=== PATIENT | female | born 1990 | race Two or more races ===

== ENCOUNTER 2024-11-10 08:51 | Outpatient (AMB) | payer MEDICAID, SELFPAY ==
[2024-11-10 09:12] VITALS: BP 125/80; PULSE 90; RESP 18; TEMP 36.4; O2SAT 97; BMI 34.8
--- NOTE | 2024-11-10 09:12 | OBCLNT_ITS ---
Vital Signs 11/10/24 09:12 Height 1.65 m Height Method Stated Weight 95.028 kg Weight Measurement Method Standing Scale BMI 34.8 BP 125/80 Blood Pressure Source Automatic Cuff Blood Pressure Location Left Upper Arm Position Sitting Respiration 18 Pulse 90 Pulse Source Monitor Temp 97.5 F Temp Source Oral Pulse Oximetry (%) 97 Oxygen Delivery Method Room Air Allergies/Home Meds Allergies & Medications Allergies No Known Allergies Allergy (Verified 11/10/24 09:13) Medication Reconciliation No Known Home Medications 09/02/22 [History Confirmed 11/10/24] Intake Visit Data Collection New Patient or Established: Established Patient (seen at [facility] within 3 years) Reason for Visit:: CARE TRANSFER Seen by Clinical Staff ONLY (RN/MA): No Deputy Felony Clerk Required: No Do You Feel Safe at Home: Yes Authorities Contacted: N/A PCP or OBGYN visit in last 3 months: Yes Hx Now: Yes Are you currently on any form of Control: No Last menstrual period: 03/13/24 Pain Present Currently: No Pain Scale Used: Mitchell-Wise/Numerical Pain scale:: 0 Smoking Status Smoking Status: Never smoker Questionnaires Covid-19 Vaccine Questionnaire Has patient been vacinated for Covid-19 Have you been vacinated for Covid-19: Yes PHQ-9 PHQ-2 Over the last 2 weeks, how often have you been bothered by any of the following problems? 1. Little interest or pleasure in doing things: not at all 2. Feeling down, depressed, or hopeless: not at all Total score: 0 PHQ-9 3. Trouble falling or staying asleep, or sleeping too much: Not at all 4. Feeling tired or having little energy: Not at all 5. Poor appetite or overeating: Not at all 6. Feeling bad about yourself - or that you are a failure or have let yourself or your family down: Not at all 7. Trouble concentrating on things, such as reading the newspaper or watching television: Not at all 8. Moving or speaking so slowly that other people could have noticed? - Or the opposite - being so fidgety or restless that you have been moving around a lot more than usual: not at all 9. Thoughts that you would be better off or of hurting yourself in some way: Not at all Total score: 0 Source: Developed by Drs. Lizandro Ramos, Madina Kee, Saeed Lyn and colleagues, with an educational anselmo from [employer]. Depression screen completed yes Social History Living Situation History Marital Status: Lives With: Family Housing: House Tobacco History Smoking Status: Never smoker Second Hand Smoke Exposure: No Alcohol History Alcohol Intake: Never Substance Use History Substance Use: THC Domestic Abuse History Do You Feel Safe at Home: Yes Past Medical History Past Medical History Have you ever been diagnosed with any of the following: Neurological Problems Cerebrovascular Accident (CVA): No Transient Ischemic Attacks (TIA): No Dementia: No Alzheimer's Disease: No Parkinson's Disease: No Brain Tumor: No Meningitis: No Seizures: No Epilepsy: No Multiple Sclerosis: No Cerebral Palsy: No Amyotrophic Lateral Sclerosis (ALS/Mellissa Gehrig's): No Guillain-Spicer Syndrome: No Spina Bifida: No Cardiology Problems Myocardial Infarction: No Cardiac Arrhythmia: No Atrial Fibrillation: No Angina: No Heart Murmur: No Coronary Artery Disease: No Congestive Heart Failure: No Hypertension: Yes Respiratory Problems Chronic Obstructive Pulmonary Disease (COPD): No Asthma: No Bronchitis: No Emphysema: No Pneumonia: No Pulmonary Fibrosis: No Tuberculosis: No Pulmonary Embolism: No Hx Cough: No Cough: No Wheezing: No Chest Deformities: No Smoking: No Smoking Cessation Counseling: No Smoking Exposure: No Tobacco Use: No Clubbing: No Stomache/Intestinal Problems Liver Cancer: No Hepatitis: No Celiac Disease: No Gall Bladder Disease: No Gastrointestinal Bleed: No Genital/Urinary Problems Chronic Kidney Disease: No Renal Disease: No Kidney Stones: No Reproductive Problems Breast Cancer: No Endometriosis: No Genital Herpes: No Gonorrhea: No Pelvic Inflammatory Disease: No Previous Pregnancies: Yes Syphilis: No Uterine Prolapse: No Musculoskeletal Problems Muscular Dystrophy: No Myasthenia Gravis: No Marfan's Syndrome: No Bone Cancer: No Arthritis: No Head,Eye,Nose,Throat Problems Cataracts: No Glaucoma: No Blind: No Retinal Detachment: No Endocrine Problems Diabetes Mellitus Type 1: No Diabetes Mellitus Type 2: No Blood Problems Anemia: No Leukemia: No Hemophilia: No Thalassemia: No Psychologic Problems Schizophrenia: No Recreational Drug Use: Yes (THC) Depression: No Anxiety: No Behavior Problems: No Self-Mutilation: No Attention Deficit Disorder: No Attention Deficit Hyperactivity Disorder: No Depression: No Post Traumatic Stress Disorder: No Eating Disorder: No Other Problems Hospitalization: No Down Syndrome: No Autism: No Developmental Delay: No Shingles: No Falls: No Blood Transfusions: No Blood Transfusion Reaction: No Anesthesia Reactions: No Organ Transplant: No Chemotherapy: No Radiation Therapy: No Hyperbaric Therapy: No MRSA: No VRSA: No Vancomycin-Resistant Enterococci: No Human Immunodeficiency Virus (HIV): No Chicken Pox: Yes Measles: No Mumps: No Rubella (North Korean Measles): No Pertussis: No Clostridium Difficile: No Cancer: No Surgical History Angioplasty: No Appendectomy: No Bariatric Surgery: No Sinus Surgery: No Splenectomy: No History of Present Illness HPI Narrative This is a 34-year-old 7 para 6 that comes for her first visit to see [facility]. Patient is a transfer from [facility] with records. Her first visit at [facility] was at 13 weeks. Last period is March 13, 2025. This gives due date December 19, 2024. Patient reports good movement. Denies signs of labor. And denies OB complaints at this time. Patient's has been uneventful. She has a history of a 10 pound baby uncomplicated . Patient is B+, antibody screen negative, RPR nonreactive, rubella immune, hepatitis B negative, hep C negative, HIV negative, GC and Chlamydia were negative. Third trimester labs were normal. She had urine drug screen positive for THC. Denies surgeries. And denies any chronic medical illnesses. OB Initial Visit OB Flowsheet OB Flowsheet Initial Weight: Not Recorded Date -?-?-?-?-?-?-?-?-?-?-?-?- EGA Weight Edema CTX Effacement BP Fundal ht Pres Dilation Effacement Station Visit Note Alb Glu FHR Mov 11/10/24 -?-?-?-?-?-?-?-?-?-?-?-?- 34w 2d 95.028 kg absent absent 125/80 34 cephalic This is a 35-year-old grand multipara here for her first visit [facility] OB clinic. Patient is a 7 para 6. Last period March 13, 2025. This gives due date December 19, 2024. Patient's biggest baby weighed 10 pounds. No history of shoulder dystocia and no problems with the . She comes with records from [facility] today. She had 2 anatomy scans that showed normal anatomy. And she also had genetic referral because of a history of. Gastric pieces in the paternal grandfather. Reports activity. Denies signs and symptoms of labor. Patient desires tubal ligation. Schedule anatomy scan at [facility] for growth. And schedule with OB next visit for BTL consult. Return in a week for GBS 156 active Menstrual History Menstrual reliability: definite Flow: heavy Menstrual regularity: regular Monthly: Yes Age at menarche: 10 On control pills at conception: No Associated symptoms (LMP): Denies amenorrhea, nausea, vomiting, fatigue, breast tenderness, urinary frequency, irritability, bloating or other OB History : 7 Para: 6 Hx # Pregnancies: 0 Hx Total # of Abortions (Spontaneous & Elective): 0 # of Living Children: 6 Delivery History 1st : Child's name: DESHAUN date: 09/23/09 sex: female Delivery type: vaginal Delivery complications: NONE History of depression before or after : No 2nd : Child's name: ATUL date: 09/24/10 sex: male Delivery type: vaginal Delivery complications: NONE History of depression before or after : No 3rd : Child's name: MADHAV date: 11/10/11 sex: female Delivery type: vaginal Delivery complications: NONE History of depression before or after : No 4th : Child's name: ASHLEY date: 07/13/14 sex: male Delivery type: vaginal Delivery complications: NONE History of depression before or after : No 5th : Child's name: SERINA date: 04/26/16 sex: male Delivery type: vaginal Delivery complications: none, 9-14 History of depression before or after : No 6th : Child's name: KENDY date: 11/22/21 sex: male Delivery type: vaginal weight (lbs): 4535.924 g Delivery complications: NONE, 10lb, 6oz History of depression before or after : No Infection History & Risk Evaluation History of STDs: none Genetic Screening & History Genetic Screening/Teratology Counseling - Includes patient, baby's father, or anyone in either family with: 1. Patient's age 35 years or older as of estimated date of delivery: No 2. Thalassemia ([place], Chinese, Mediterranean, or Background); MCV less than 80: No 3. Neural Tube Defect (Meningomyelocele, Spina Bifida, or Anencephaly): No 4. Congenital Heart Defect: No 5. Down Syndrome: No 6. Terry-Sachs (Ashkenazi Jain, Cajun, Cam[place]onian [place]): No 7. Robert Disease (Ashkenazi Jain): No 8. Familial Dysautonomia (Ashkenazi Jain): No 9. Sickle Cell Disease or Trait (): No 10. Hemophilia or other blood disorders: No 11. Muscular Dystrophy: No 12. Cystic Fibrosis: No 13. Elliott's Chorea: No 14. Mental Retardation/Autism: No 15. Other inherited genetic or chromosomal disorder: No 16. Maternal Metabolic Disorder (EG,TYPE 1 Diabetes, PKU): No 17. Patient or baby's father had a child with defects not listed above: No 18. Recurrent loss or a stillbirth: No 19. Medications (including supplements, vitamins, herbs or otc drugs)/illicit/recreational drugs/alcohol since last menstrual period: No 20. Any other: No Infection History 1. Live with someone with TB or exposed to TB: No 2. Rash or viral illness since last menstrual period: No 3. Hepatitis B,C: No Other (see comments) Source: [employer] Review of Systems Review of Systems Systems Reviewed: All systems reviewed, normal except as documented Constitutional Constitutional: Denies fatigue Gastrointestinal Gastrointestinal: Denies bloating, Denies nausea and Denies vomiting Genitourinary Genitourinary: Denies amenorrhea and Denies urinary frequency Psychiatric Psychiatric: Denies irritability Endocrine Endocrine: Denies fatigue Exam General Limitations: no limitations General Appearance: alert, in no apparent distress, comfortable, cooperative, healthy appearing, well developed and well groomed Head Head exam: atraumatic, normocephalic and normal inspection Chest Chest inspection: Present normal inspection and symmetric chest wall rise Resp Respiratory exam: Present normal lung sounds bilaterally Card Cardiovascular exam: Present regular rate, normal rhythm and normal heart sounds Abdominal Abdominal exam: Present soft ([id number]) and normal bowel sounds Psych Psychiatric exam: Present normal affect and normal mood Assessment & Plan Diagnosis / Problem List (1) [facility]: Status: Acute (2) Grand multiparity with current : Status: Acute Qualifiers: Trimester: third trimester Qualified Code(s): O09.43 - Supervision of with grand multiparity, third trimester Plan schedule with OB [place] for BTL consult, reviewed labor signs and symptoms. Discussed ER precautions. Discussed kick count twice daily. GBS next visit. Schedule limited ultrasound for presentation. Return in 2 weeks OB check Additional Plan Follow Up: 2 Weeks (2 week OBC) Office Procedures OB Clinic LOC & Office Proc's Nursing/Assessment Patient Status: Established Patient OB Clinic Nursing Assessment: Medication Reconciliation, Update PMH in EMR and Vital Signs OB Clinic Coordination of Care: Complex Care and Chronic Disease 1-5, Consent,records obtained, informed consent, Education Simp Pt/Fam, Lab and Imaging orders, Results/Orders obtained and Staff clarify orders Special Needs: Heart tones Established Patient Charge Established Patient Point Assignment: 135 Established Patient Point Charge: EP Level 4 (120-155)
== END 2024-11-10 09:30 | disposition home or self-care (01) ==
LOC: HODSOBC 08:51
PROVIDERS: Supervising Provider Advanced Practice Midwife; Visit Provider Advanced Practice Midwife
DX: O09.43 Supervision of pregnancy with grand multiparity, third trimester (principal); Z3A.34 34 weeks gestation of pregnancy
CPT/HCPCS: 99214; G0463

== ENCOUNTER 2024-11-24 08:54 | Outpatient (AMB) | payer MEDICAID, SELFPAY ==
[2024-11-24 09:02] VITALS: BP 134/83; PULSE 94; RESP 18; TEMP 36.2; O2SAT 99; BMI 34.7
--- NOTE | 2024-11-24 09:02 | AMB.OBVISIT ---
Vital Signs 11/24/24 09:02 Height 1.65 m Height Method Stated Weight 94.517 kg Weight Measurement Method Standing Scale BMI 34.7 BP 134/83 H Blood Pressure Source Automatic Cuff Blood Pressure Location Left Upper Arm Position Sitting Respiration 18 Pulse 94 Pulse Source Monitor Temp 97.2 F Temp Source Oral Pulse Oximetry (%) 99 Oxygen Delivery Method Room Air Allergies/Home Meds Allergies & Medications Allergies No Known Allergies Allergy (Verified 11/24/24 09:04) Medication Reconciliation No Known Home Medications 09/02/22 [History Confirmed 11/24/24] Intake Visit Data Collection New Patient or Established: Established Patient (seen at [facility] within 3 years) Reason for Visit:: OBC Seen by Clinical Staff ONLY (RN/MA): No Healthcare Analyst Required: No Do You Feel Safe at Home: Yes Authorities Contacted: N/A PCP or OBGYN visit in last 3 months: Yes Date of Last PCP or OBGYN visit: 11/10/24 Hx Now: Yes Are you currently on any form of Control: No Pain Present Currently: Yes Pain Scale Used: Mitchell-Wise/Numerical Pain scale:: 5 Smoking Status Smoking Status: Never smoker Questionnaires Covid-19 Vaccine Questionnaire Has patient been vacinated for Covid-19 Have you been vacinated for Covid-19: Yes PHQ-9 PHQ-2 Over the last 2 weeks, how often have you been bothered by any of the following problems? 1. Little interest or pleasure in doing things: not at all 2. Feeling down, depressed, or hopeless: not at all Total score: 0 PHQ-9 3. Trouble falling or staying asleep, or sleeping too much: Not at all 4. Feeling tired or having little energy: Not at all 5. Poor appetite or overeating: Not at all 6. Feeling bad about yourself - or that you are a failure or have let yourself or your family down: Not at all 7. Trouble concentrating on things, such as reading the newspaper or watching television: Not at all 8. Moving or speaking so slowly that other people could have noticed? - Or the opposite - being so fidgety or restless that you have been moving around a lot more than usual: not at all 9. Thoughts that you would be better off or of hurting yourself in some way: Not at all If you checked off any problems, how difficult have these problems made it for you to do your work, take care of things at home, or get along with other people?: not difficult at all Source: Developed by Drs. Lizandro Ramos, Madina Kee, Saeed Lyn and colleagues, with an educational anselmo from [employer]. Depression screen completed yes Social History Living Situation History Lives With: Family Housing: House Tobacco History Smoking Status: Never smoker Second Hand Smoke Exposure: No Alcohol History Alcohol Intake: Never Substance Use History Substance Use: THC Domestic Abuse History Do You Feel Safe at Home: Yes Past Medical History Past Medical History Have you ever been diagnosed with any of the following: Neurological Problems Cerebrovascular Accident (CVA): No Transient Ischemic Attacks (TIA): No Dementia: No Alzheimer's Disease: No Parkinson's Disease: No Brain Tumor: No Meningitis: No Seizures: No Epilepsy: No Multiple Sclerosis: No Cerebral Palsy: No Amyotrophic Lateral Sclerosis (ALS/Mellissa Gehrig's): No Guillain-Granger Syndrome: No Spina Bifida: No Cardiology Problems Myocardial Infarction: No Cardiac Arrhythmia: No Atrial Fibrillation: No Angina: No Heart Murmur: No Coronary Artery Disease: No Congestive Heart Failure: No Hypertension: Yes Respiratory Problems Chronic Obstructive Pulmonary Disease (COPD): No Asthma: No Bronchitis: No Emphysema: No Pneumonia: No Pulmonary Fibrosis: No Tuberculosis: No Pulmonary Embolism: No Hx Cough: No Cough: No Wheezing: No Chest Deformities: No Smoking: No Smoking Cessation Counseling: No Smoking Exposure: No Tobacco Use: No Clubbing: No Stomache/Intestinal Problems Liver Cancer: No Hepatitis: No Celiac Disease: No Gall Bladder Disease: No Gastrointestinal Bleed: No Genital/Urinary Problems Renal Disease: No Kidney Stones: No Reproductive Problems Breast Cancer: No Endometriosis: No Genital Herpes: No Gonorrhea: No Pelvic Inflammatory Disease: No Previous Pregnancies: Yes Syphilis: No Uterine Prolapse: No Musculoskeletal Problems Muscular Dystrophy: No Myasthenia Gravis: No Marfan's Syndrome: No Bone Cancer: No Arthritis: No Head,Eye,Nose,Throat Problems Cataracts: No Glaucoma: No Blind: No Retinal Detachment: No Endocrine Problems Diabetes Mellitus Type 1: No Diabetes Mellitus Type 2: No Blood Problems Anemia: No Leukemia: No Hemophilia: No Thalassemia: No Psychologic Problems Schizophrenia: No Recreational Drug Use: Yes (THC) Depression: No Anxiety: No Behavior Problems: No Self-Mutilation: No Attention Deficit Disorder: No Attention Deficit Hyperactivity Disorder: No Depression: No Post Traumatic Stress Disorder: No Eating Disorder: No Other Problems Hospitalization: No Down Syndrome: No Autism: No Developmental Delay: No Shingles: No Falls: No Blood Transfusions: No Blood Transfusion Reaction: No Anesthesia Reactions: No Organ Transplant: No Chemotherapy: No Radiation Therapy: No Hyperbaric Therapy: No MRSA: No VRSA: No Vancomycin-Resistant Enterococci: No Human Immunodeficiency Virus (HIV): No Chicken Pox: Yes Measles: No Mumps: No Rubella (Slovenian Measles): No Pertussis: No Clostridium Difficile: No Cancer: No Surgical History Angioplasty: No Appendectomy: No Bariatric Surgery: No Sinus Surgery: No Splenectomy: No History of Present Illness HPI Narrative Schedule Visit OB Visit Log OB Flowsheet Initial Weight: Not Recorded Date <del>?</del> EGA Weight Edema CTX Effacement BP Fundal ht Pres Dilation Effacement Station Visit Note Alb Glu FHR Mov 11/10/24 <del>?</del> 34w 2d 95.028 kg absent absent 125/80 34 cephalic This is a 35-year-old grand multipara here for her first visit [facility] OB clinic. Patient is a 7 para 6. Last period March 13, 2025. This gives due date December 19, 2024. Patient's biggest baby weighed 10 pounds. No history of shoulder dystocia and no problems with the . She comes with records from [facility] today. She had 2 anatomy scans that showed normal anatomy. And she also had genetic referral because of a history of. Gastric pieces in the paternal grandfather. Reports activity. Denies signs and symptoms of labor. Patient desires tubal ligation. Schedule anatomy scan at [facility] for growth. And schedule with OB next visit for BTL consult. Return in a week for GBS 156 active 11/24/24 <del>?</del> 36w 2d 94.517 kg absent occasional 134/83 fetus active, reports fetus is active, c/o pressure and occ cramps,no leaking. fkc bid. GBS, rtc 1 week. Urine: NIT-, leuk, protien trace. RTC 1 week fetus active, reports fetus is active, c/o pressure and occ cramps,no leaking. fkc bid. GBS, rtc 1 week. Urine: NIT-, leuk, protien trace. RTC 1 week. sono today RAYRAY Calculator Estimated Delivery Date Method Current WG Current Estimate 12/20/24 Ultrasound #1 36w 2d Other Estimates 12/18/24 LMP (Certain) 36w 4d Assessment & Plan Diagnosis / Problem List (1) Grand multiparity with current : Status: Acute Qualifiers: Trimester: third trimester Qualified Code(s): O09.43 - Supervision of with grand multiparity, third trimester Additional Plan Follow Up: 1 Week (obc) Office Procedures OB Clinic LOC & Office Proc's Nursing/Assessment Patient Status: Established Patient OB Clinic Nursing Assessment: BP Monitoring, Medication Reconciliation, Update PMH in EMR and Vital Signs OB Clinic Coordination of Care: Consent,records obtained, informed consent, Education Simp Pt/Fam and Staff clarify orders Special Needs: Heart tones Established Patient Charge Established Patient Point Assignment: 105 Established Patient Point Charge: EP Level 3 (80-115)
== END 2024-11-24 09:13 | disposition home or self-care (01) ==
LOC: HODSOBC 08:54
PROVIDERS: Supervising Provider Advanced Practice Midwife; Visit Provider Advanced Practice Midwife
DX: O09.43 Supervision of pregnancy with grand multiparity, third trimester (principal); Z3A.36 36 weeks gestation of pregnancy
CPT/HCPCS: 99213; G0463

== ENCOUNTER 2024-12-01 09:42 | Outpatient (AMB) | payer MEDICAID, SELFPAY ==
--- NOTE | 2024-12-01 09:55 | AMB.OBVISIT ---
Vital Signs 12/01/24 09:59 Height 1.65 m Height Method Stated Weight 95.708 kg Weight Measurement Method Standing Scale BMI 35.2 BP 124/80 Blood Pressure Source Automatic Cuff Blood Pressure Location Left Upper Arm Position Sitting Respiration 18 Pulse 93 Pulse Source Monitor Temp 97.5 F Temp Source Oral Pulse Oximetry (%) 96 Oxygen Delivery Method Room Air Allergies/Home Meds Allergies & Medications Allergies No Known Allergies Allergy (Verified 12/01/24 10:00) Medication Reconciliation No Known Home Medications 09/02/22 [History Confirmed 12/01/24] Intake Visit Data Collection New Patient or Established: Established Patient (seen at [facility] within 3 years) Reason for Visit:: CARE Seen by Clinical Staff ONLY (RN/MA): No Er Medical Technician Required: No Do You Feel Safe at Home: Yes Authorities Contacted: N/A PCP or OBGYN visit in last 3 months: Yes Hx Now: Yes Are you currently on any form of Control: No Pain Present Currently: No Pain Scale Used: Mitchell-Wise/Numerical Pain scale:: 0 Smoking Status Smoking Status: Never smoker Questionnaires Covid-19 Vaccine Questionnaire Has patient been vacinated for Covid-19 Have you been vacinated for Covid-19: No PHQ-9 PHQ-2 Over the last 2 weeks, how often have you been bothered by any of the following problems? 1. Little interest or pleasure in doing things: not at all 2. Feeling down, depressed, or hopeless: not at all Total score: 0 PHQ-9 3. Trouble falling or staying asleep, or sleeping too much: Not at all 4. Feeling tired or having little energy: Not at all 5. Poor appetite or overeating: Not at all 6. Feeling bad about yourself - or that you are a failure or have let yourself or your family down: Not at all 7. Trouble concentrating on things, such as reading the newspaper or watching television: Not at all 8. Moving or speaking so slowly that other people could have noticed? - Or the opposite - being so fidgety or restless that you have been moving around a lot more than usual: not at all 9. Thoughts that you would be better off or of hurting yourself in some way: Not at all Total score: 0 Source: Developed by Madina Boyce.W. Chilango, Saeed Lyn and colleagues, with an educational anselmo from [employer]. Depression screen completed yes Social History Living Situation History Lives With: Family Housing: House Tobacco History Smoking Status: Never smoker Second Hand Smoke Exposure: No Alcohol History Alcohol Intake: Never Substance Use History Substance Use: THC Domestic Abuse History Do You Feel Safe at Home: Yes Past Medical History Past Medical History Have you ever been diagnosed with any of the following: Neurological Problems Cerebrovascular Accident (CVA): No Transient Ischemic Attacks (TIA): No Dementia: No Alzheimer's Disease: No Parkinson's Disease: No Brain Tumor: No Meningitis: No Seizures: No Epilepsy: No Multiple Sclerosis: No Cerebral Palsy: No Amyotrophic Lateral Sclerosis (ALS/Mellissa Gehrig's): No Guillain-Sagamore Syndrome: No Spina Bifida: No Cardiology Problems Myocardial Infarction: No Cardiac Arrhythmia: No Atrial Fibrillation: No Angina: No Heart Murmur: No Coronary Artery Disease: No Congestive Heart Failure: No Hypertension: Yes Respiratory Problems Chronic Obstructive Pulmonary Disease (COPD): No Asthma: No Bronchitis: No Emphysema: No Pneumonia: No Pulmonary Fibrosis: No Tuberculosis: No Pulmonary Embolism: No Hx Cough: No Cough: No Wheezing: No Chest Deformities: No Smoking: No Smoking Cessation Counseling: No Smoking Exposure: No Tobacco Use: No Clubbing: No Stomache/Intestinal Problems Liver Cancer: No Hepatitis: No Celiac Disease: No Gall Bladder Disease: No Gastrointestinal Bleed: No Genital/Urinary Problems Renal Disease: No Kidney Stones: No Reproductive Problems Breast Cancer: No Endometriosis: No Genital Herpes: No Gonorrhea: No Pelvic Inflammatory Disease: No Previous Pregnancies: Yes Syphilis: No Uterine Prolapse: No Musculoskeletal Problems Muscular Dystrophy: No Myasthenia Gravis: No Marfan's Syndrome: No Bone Cancer: No Arthritis: No Head,Eye,Nose,Throat Problems Cataracts: No Glaucoma: No Blind: No Retinal Detachment: No Endocrine Problems Diabetes Mellitus Type 1: No Diabetes Mellitus Type 2: No Blood Problems Anemia: No Leukemia: No Hemophilia: No Thalassemia: No Psychologic Problems Schizophrenia: No Recreational Drug Use: Yes (THC) Depression: No Anxiety: No Behavior Problems: No Self-Mutilation: No Attention Deficit Disorder: No Attention Deficit Hyperactivity Disorder: No Depression: No Post Traumatic Stress Disorder: No Eating Disorder: No Other Problems Hospitalization: No Down Syndrome: No Autism: No Developmental Delay: No Shingles: No Falls: No Blood Transfusions: No Blood Transfusion Reaction: No Anesthesia Reactions: No Organ Transplant: No Chemotherapy: No Radiation Therapy: No Hyperbaric Therapy: No MRSA: No VRSA: No Vancomycin-Resistant Enterococci: No Human Immunodeficiency Virus (HIV): No Chicken Pox: Yes Measles: No Mumps: No Rubella ([place]ese Measles): No Pertussis: No Clostridium Difficile: No Cancer: No Surgical History Angioplasty: No Appendectomy: No Bariatric Surgery: No Sinus Surgery: No Splenectomy: No Care OB Visit Log OB Flowsheet Initial Weight: Not Recorded Date <del>?</del> EGA Weight Edema CTX Effacement BP Fundal ht Pres Dilation Effacement Station Visit Note Alb Glu FHR Mov 11/10/24 <del>?</del> 34w 2d 95.028 kg absent absent 125/80 34 cephalic This is a 35-year-old grand multipara here for her first visit [facility] OB clinic. Patient is a 7 para 6. Last period March 13, 2025. This gives due date December 19, 2024. Patient's biggest baby weighed 10 pounds. No history of shoulder dystocia and no problems with the . She comes with records from [facility] today. She had 2 anatomy scans that showed normal anatomy. And she also had genetic referral because of a history of. Gastric pieces in the paternal grandfather. Reports activity. Denies signs and symptoms of labor. Patient desires tubal ligation. Schedule anatomy scan at [facility] for growth. And schedule with OB next visit for BTL consult. Return in a week for GBS 156 active 11/24/24 <del>?</del> 36w 2d 94.517 kg absent occasional 134/83 fetus active, reports fetus is active, c/o pressure and occ cramps,no leaking. fkc bid. GBS, rtc 1 week. Urine: NIT-, leuk, protien trace. RTC 1 week fetus active, reports fetus is active, c/o pressure and occ cramps,no leaking. fkc bid. GBS, rtc 1 week. Urine: NIT-, leuk, protien trace. RTC 1 week. sono today 12/01/24 <del>?</del> 37w 2d 95.708 kg absent occasional 124/80 38 cephalic occ uc, no bleeding or leaking, fetus active. GBS negative, review labor precaution, fkc bid. rtc 1 week 150 active RAYRAY Calculator Estimated Delivery Date Method Current WG Current Estimate 12/20/24 Ultrasound #1 37w 2d Other Estimates 12/18/24 LMP (Certain) 37w 4d Assessment & Plan Diagnosis / Problem List (1) Grand multiparity with current : Status: Acute Qualifiers: Trimester: third trimester Qualified Code(s): O09.43 - Supervision of with grand multiparity, third trimester (2) Encounter for supervision of normal in multigravida in third trimester: Status: Acute Plan discuss labor precaution. FKC bid. discuss GBS today. rtc 1 week OBC. fetus active, Additional Plan Follow Up: 1 Week (obc) Office Procedures OB Clinic LOC & Office Proc's Nursing/Assessment Patient Status: Established Patient OB Clinic Nursing Assessment: Medication Reconciliation, Update PMH in EMR and Vital Signs OB Clinic Coordination of Care: Complex Care and Chronic Disease 1-5, Consent,records obtained, informed consent, Education Simp Pt/Fam, Results/Orders obtained and Staff clarify orders Special Needs: Heart tones Miscellaneous Interventions: Blood/Urine Collection Established Patient Charge Established Patient Point Assignment: 150 Established Patient Point Charge: EP Level 4 (120-155)
[2024-12-01 09:59] VITALS: BP 124/80; PULSE 93; RESP 18; TEMP 36.4; O2SAT 96; BMI 35.2
== END 2024-12-01 10:28 | disposition home or self-care (01) ==
LOC: HODSOBC 09:42
PROVIDERS: Supervising Provider Advanced Practice Midwife; Visit Provider Advanced Practice Midwife
DX: O09.43 Supervision of pregnancy with grand multiparity, third trimester (principal); Z3A.37 37 weeks gestation of pregnancy
CPT/HCPCS: 99214; G0463

== ENCOUNTER 2024-12-08 09:18 | Outpatient (AMB) | payer MEDICAID, SELFPAY ==
--- NOTE | 2024-12-08 09:34 | OBCLNT_ITS ---
Vital Signs 12/08/24 09:36 Height 1.65 m Height Method Stated Weight 94.914 kg Weight Measurement Method Standing Scale BMI 34.8 BP 133/87 H Blood Pressure Source Automatic Cuff Blood Pressure Location Right Upper Arm Position Sitting Respiration 20 Pulse 91 Pulse Source Monitor Temp 97.4 F Temp Source Temporal Artery Scan Pulse Oximetry (%) 98 Oxygen Delivery Method Room Air Allergies/Home Meds Allergies & Medications Allergies No Known Allergies Allergy (Verified 12/08/24 09:37) Medication Reconciliation vits no.126-ferrous fum 28 mg iron-folic acid 800 mcg tablet (Classic ) tab PO 12/08/24 [History Confirmed 12/08/24] Intake Visit Data Collection New Patient or Established: Established Patient (seen at [facility] within 3 years) Reason for Visit:: - Contractions lasting a couple hours and 3 minutes apart last night - Feeling of pressure and inability to close my legs Do You Feel Safe at Home: Yes Authorities Contacted: N/A PCP or OBGYN visit in last 3 months: Yes Pain Present Currently: No Smoking Status Smoking Status: Never smoker Questionnaires Covid-19 Vaccine Questionnaire Has patient been vacinated for Covid-19 Have you been vacinated for Covid-19: Yes PHQ-9 PHQ-2 Over the last 2 weeks, how often have you been bothered by any of the following problems? 1. Little interest or pleasure in doing things: not at all 2. Feeling down, depressed, or hopeless: not at all Total score: 0 PHQ-9 8. Moving or speaking so slowly that other people could have noticed? - Or the opposite - being so fidgety or restless that you have been moving around a lot more than usual: not at all Source: Developed by Drs. Lizandro Ramos, Madina Kee, Saeed Lyn and colleagues, with an educational anselmo from [employer]. 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 - Last night, she experienced contractions: - Duration: Couple of hours - Frequency: 3 minutes apart - Resolved spontaneously - Current symptoms: - Feeling of pressure - Difficulty closing legs - Sensation of baby coming down - Patient reports this contraction pattern is unusual for her - Due date: December 19, 2024 No contractions/ LOF/VB, reports good FM No LIMA/VC/RUQ/Epig pain Estimated Due Date Summary LMP unknown RAYRAY by LMP unknown Ultrasound #1 08/27/2024, 23w4d RAYRAY by US #1 12/20/2024 Final RAYRAY 12/20/2024 Basis for Final RAYRAY 2md trimester Care OB Visit Log OB Flowsheet Initial Weight: Not Recorded Date -?-?-?-?-?-?-?-?-?-?-?-?- EGA Weight BP Alb Glu CTX Pres Fundal ht FHR Mov Dilation Station Effacement Hx Notes Visit Note 11/10/24 -?-?-?-?-?-?-?-?-?-?-?-?- 34w 2d 95.028 kg 125/80 absent cephalic 34 156 active This is a 35-year-old grand multipara here for her first visit [facility] OB clinic. Patient is a 7 para 6. Last period March 13, 2025. This gives due date December 19, 2024. Patient's biggest baby weighed 10 pounds. No history of shoulder dystocia and no problems with the . She comes with records from [employer] today. She had 2 anatomy scans that showed normal anatomy. And she also had genetic referral because of a history of. Gastric pieces in the paternal grandfather. Reports activity. Denies signs and symptoms of labor. Patient desires tubal ligation. Schedule anatomy scan at [facility] for growth. And schedule with OB next visit for BTL consult. Return in a week for GBS 11/24/24 -?-?-?-?-?-?-?-?-?-?-?-?- 36w 2d 94.517 kg 134/83 occasional fetus active, reports fetus is active, c/o pressure and occ cramps,no leaking. fkc bid. GBS, rtc 1 week. Urine: NIT-, leuk, protien trace. RTC 1 week fetus active, reports fetus is active, c/o pressure and occ cramps,no leaking. fkc bid. GBS, rtc 1 week. Urine: NIT-, leuk, protien trace. RTC 1 week. sono today 12/01/24 -?-?-?-?-?-?-?-?-?-?-?-?- 37w 2d 95.708 kg 124/80 occasional cephalic 38 150 active occ uc, no bleeding or leaking, fetus active. GBS negative, review labor precaution, fkc bid. rtc 1 week 12/08/24 -?-?-?-?-?-?-?-?-?-?-?-?- 38w 2d 94.914 kg 133/87 Tia De Jesus, at term with RAYRAY 12/19/24, presents after experiencing contractions last night lasting several hours and occurring every 3 minutes, which resolved spontaneously. She reports feeling pelvic pressure and difficulty closing her legs, describing a sensation of the baby descending. These symptoms are unusual for her. She denies current CTX/LOF/VB and reports good movement. FHR auscultated at 141 bpm, normal. Plan: Schedule induction for 12/21/2024 (41+2) Instruct patient to go to L&D if contrac tions resume at similar frequency/duration Recommend continued activity (walking) a nd dietary strategies (e.g., spicy food) if she wishes to promote labor onset Routine counseling and monitoring continue RAYRAY Calculator Estimated Delivery Date Method Current WG Current Estimate 12/20/24 Ultrasound #1 39w 3d Other Estimates 12/18/24 LMP (Certain) 39w 5d Exam General General Appearance: alert, in no apparent distress and healthy appearing Head Head exam: atraumatic Neck Neck exam: Present normal inspection and trachea midline Chest Chest inspection: Present normal inspection and symmetric chest wall rise External exam: Present normal external exam; Absent tenderness Neuro Neurological exam: Present oriented X3 Psych Psychiatric exam: Present normal affect and normal mood Office Procedures OB Clinic LOC & Office Proc's Nursing/Assessment Patient Status: Established Patient OB Clinic Nursing Assessment: BP Monitoring, Medication Reconciliation, Update PMH in EMR and Vital Signs OB Clinic Coordination of Care: Complex Care and Chronic Disease 1-5, Education Complex Pt/Fam, Consent,records obtained, informed consent and Staff clarify orders Special Needs: Heart tones Established Patient Charge Established Patient Point Assignment: 135 Established Patient Point Charge: EP Level 4 (120-155) Assessment & Plan Diagnosis / Problem List (1) Grand multiparity with current : Status: Acute Qualifiers: Trimester: third trimester Qualified Code(s): O09.43 - Supervision of with grand multiparity, third trimester (2) Encounter for supervision of normal in multigravida in third trimester: Status: Acute Plan Problem List - , 8th - Labor contractions Assessment - Patient experienced contractions lasting a couple hours, 3 minutes apart, which resolved spontaneously - Patient reported feeling pressure and inability to close legs - heart rate 141 bpm, noted as normal - , due date December 19, 2024 Plan - Schedule induction for December 21, 2024 (two days after due date) - Patient instructed to go to hospital if experiencing contractions similar to those experienced the night before - Advised to walk and eat spicy foods to potentially induce labor naturally Educated the patient on labor signs, including regular contractions, lower back pain, and changes in vaginal discharge. Advised avoiding heavy lifting and getting adequate rest. Instructed to contact the office immediately if any signs occur. Discussed the importance of a balanced diet rich in folic acid, iron, and calcium, and provided a list of recommended and to-avoid foods. Emphasized avoiding high-sugar foods to reduce gestational diabetes risk. Encouraged hydration and frequent, small meals for energy..
[2024-12-08 09:36] VITALS: BP 133/87; PULSE 91; RESP 20; TEMP 36.3; O2SAT 98; BMI 34.8
== END 2024-12-08 09:56 | disposition home or self-care (01) ==
LOC: HODSOBC 09:18
PROVIDERS: Supervising Provider Obstetrics & Gynecology; Visit Provider Obstetrics & Gynecology
DX: O09.43 Supervision of pregnancy with grand multiparity, third trimester (principal); Z3A.38 38 weeks gestation of pregnancy
CPT/HCPCS: 99214; G0463

== ENCOUNTER 2024-12-16 09:38 | Outpatient (AMB) | payer MEDICAID, SELFPAY ==
--- NOTE | 2024-12-16 09:49 | OBCLNT_ITS ---
Vital Signs 12/16/24 09:50 Height 1.65 m Height Method Measured Weight 93.44 kg Weight Measurement Method Standing Scale BMI 34.3 BP 142/91 H Blood Pressure Source Automatic Cuff Blood Pressure Location Right Upper Arm Position Sitting Respiration 20 Pulse 93 Pulse Source Monitor Temp 98.1 F Temp Source Temporal Artery Scan Pulse Oximetry (%) 97 Oxygen Delivery Method Room Air Allergies/Home Meds Allergies & Medications Allergies No Known Allergies Allergy (Verified 12/08/24 09:37) Intake Visit Data Collection New Patient or Established: Established Patient (seen at [facility] within 3 years) Reason for Visit:: OB FOLLOW UP Consent obtained for Telemed Visit: No Seen by Clinical Staff ONLY (RN/MA): No Inspecting Machine Adjuster Required: No Do You Feel Safe at Home: Yes Authorities Contacted: N/A PCP or OBGYN visit in last 3 months: Yes Date of Last PCP or OBGYN visit: 12/08/24 Hx Now: Yes Are you currently on any form of Control: No Pain Present Currently: No Smoking Status Smoking Status: Never smoker Questionnaires PHQ-9 PHQ-2 Over the last 2 weeks, how often have you been bothered by any of the following problems? 1. Little interest or pleasure in doing things: not at all PHQ-9 8. Moving or speaking so slowly that other people could have noticed? - Or the opposite - being so fidgety or restless that you have been moving around a lot more than usual: not at all Source: Developed by Drs. Lizandro Ramos, Madina Kee, Saeed Lyn and colleagues, with an educational anselmo from [email or web address]. 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 Medical History Past Medical History: No Hx Neurological Disorders, No Hx Breast Cancer, No Hx Cardiac Disorders, Yes Hx Hypertension, No Hx Cancer, No Hx Blood Disorders, No Hx Anemia, Yes Hx Gastrointestinal Disorders (HEARTBRUN), No Hx Renal Disease, No Hx Diabetes Mellitus Type 1, No Hx Diabetes Mellitus Type 2 and No Psychiatric Problems Care OB Visit Log OB Flowsheet Initial Weight: Not Recorded Date -?-?-?-?-?-?-?-?-?-?-?-?- EGA Weight BP Alb Glu CTX Pres Fundal ht FHR Mov Dilation Station Effacement Hx Notes Visit Note 11/10/24 -?-?-?-?-?-?-?-?-?-?-?-?- 34w 2d 95.028 kg 125/80 absent cephalic 34 156 active This is a 35-year-old grand multipara here for her first visit [facility] OB clinic. Patient is a 7 para 6. Last period March 13, 2025. This gives due date December 19, 2024. Patient's biggest baby weighed 10 pounds. No history of shoulder dystocia and no problems with the . She comes with records from [facility] today. She had 2 anatomy scans that showed normal anatomy. And she also had genetic referral because of a history of. Gastric pieces in the paternal grandfather. Reports activity. Denies signs and symptoms of labor. Patient desires tubal ligation. Schedule anatomy scan at [facility] for growth. And schedule with OB next visit for BTL consult. Return in a week for GBS 11/24/24 -?-?-?-?-?-?-?-?-?-?-?-?- 36w 2d 94.517 kg 134/83 occasional fetus active, reports fetus is active, c/o pressure and occ cramps,no leaking. fkc bid. GBS, rtc 1 week. Urine: NIT-, leuk, protien trace. RTC 1 week fetus active, reports fetus is active, c/o pressure and occ cramps,no leaking. fkc bid. GBS, rtc 1 week. Urine: NIT-, leuk, protien trace. RTC 1 week. sono today 12/01/24 -?-?-?-?-?-?-?-?-?-?-?-?- 37w 2d 95.708 kg 124/80 occasional cephalic 38 150 active occ uc, no bleeding or leaking, fetus active. GBS negative, review labor precaution, fkc bid. rtc 1 week 12/08/24 -?-?-?-?-?-?-?-?-?-?-?-?- 38w 2d 94.914 kg 133/87 Tia De Jesus, at term with RAYRAY 12/19/24, presents after experiencing contractions last night lasting several hours and occurring every 3 minutes, which resolved spontaneously. She reports feeling pelvic pressure and difficulty closing her legs, describing a sensation of the baby descending. These symptoms are unusual for her. She denies current CTX/LOF/VB and reports good movement. FHR auscultated at 141 bpm, normal. Plan: Schedule induction for 12/21/2024 (41+2) Instruct patient to go to L&D if contrac tions resume at similar frequency/duration Recommend continued activity (walking) a nd dietary strategies (e.g., spicy food) if she wishes to promote labor onset Routine counseling and monitoring continue 12/16/24 -?-?-?-?-?-?-?-?-?-?-?-?- 39w 3d 93.44 kg 142/91 occasional cephalic 39 156 active 1 -4 25 increased tika gatica, irregular, uc come and go, denies leaking,bleeding. reports + movement, denies epigastric pain, no visual changes,no headache. schedule for IOL 12/21/24, discuss labor precaution and kick count bid, discuss pIH sign and symptom, discuss danger s/s, discuss labor IOL and when to call for bed, exam: L/1/p/soft/vertesx RAYRAY Calculator Estimated Delivery Date Method Current WG Current Estimate 12/20/24 Ultrasound #1 39w 4d Other Estimates 12/18/24 LMP (Certain) 39w 6d Office Procedures OB Clinic LOC & Office Proc's Nursing/Assessment Patient Status: Established Patient OB Clinic Nursing Assessment: BP Monitoring, Medication Reconciliation, Update P MH in EMR and Vital Signs OB Clinic Coordination of Care: Complex Care and Chronic Disease 1-5 and Consent,records obtained, informed consent Established Patient Charge Established Patient Point Assignment: 75 Established Patient Point Charge: EP Level 3 (80-115) Assessment & Plan Diagnosis / Problem List (1) Grand multiparity with current : Status: Acute Qualifiers: Trimester: third trimester Qualified Code(s): O09.43 - Supervision of with grand multiparity, third trimester Plan discuss PIH sign/symptom, discuss labor precaution, kick count bid,hydrate. comfort measure early labor, IOL 12/21, patient will call for bed Additional Plan Follow Up: 1 Week (obc)
[2024-12-16 09:50] VITALS: BP 142/91; PULSE 93; RESP 20; TEMP 36.7; O2SAT 97; BMI 34.3
== END 2024-12-16 10:26 | disposition home or self-care (01) ==
PROVIDERS: Supervising Provider Advanced Practice Midwife; Visit Provider Advanced Practice Midwife
DX: O09.43 Supervision of pregnancy with grand multiparity, third trimester (principal); Z3A.39 39 weeks gestation of pregnancy
CPT/HCPCS: 99213; G0463

== ENCOUNTER 2024-12-23 19:18 | Inpatient (IN) | payer MEDICAID, SELFPAY ==
[2024-12-23] VITALS (13 sets, daily range): BP systolic 125–177; BP diastolic 73–99; PULSE 63–90; RESP 18; TEMP 36.8–36.9; BMI 35.1
--- NOTE | 2024-12-23 20:39 | XR_ITS ---
Examination: Complete OB ultrasound greater than 14 weeks Date and time of exam: December 23, 2024, 211 hours INDICATIONS: Pelvic contractions today Findings: Viable intrauterine single fetus with single amniotic sac presentation cephalic Cardiac motion 140 bpm Placenta anterior fundal grade 3 Umbilical cord insertion seen Amniotic fluid index 13.3 cm Cervix 3.4 cm Ovaries obscured by bowel gas. Composite estimated gestational age based on BPD, head circumference, abdominal circumference, femur length is 40 weeks 1 day Estimated weight 3935 g. Survey of intracranial anatomy, spinal anatomy, abdominal anatomy, four-chamber heart performed with no abnormalities identified. Impression: Viable intrauterine gestation cephalic presentation.
[2024-12-23 21:03] LABS: Basophils % (Auto) 0 % (0-2.5); Eosinophils # (Auto) 0.1 Thou/mm3 (0.0-0.5); Eosinophils % (Auto) 1 % (0-10); Hematocrit 34.8 % (36.0-46.0); Hemoglobin 12.1 g/dL (12.0-16.0); Immature Granulocytes % (Auto) 1 % (0-0); Immature Granulocytes Auto 0.08 Thou/mm3 (0.00-0.00); Lymphocytes # (Auto) 2.4 Thou/mm3 (1.0-4.8); Lymphocytes % (Auto) 24 % (10-50); Mean Corpuscular HGB Conc 34.8 g/dl (31.0-37.0); Mean Corpuscular Hemoglobin 27.3 pg (25.0-35.0); Mean Corpuscular Volume 79 fL (80-100); Monocytes # (Auto) 0.5 Thou/mm3 (0.0-0.8); Monocytes % (Auto) 5 % (0-12); Neutrophils # (Auto) 6.7 Thou/mm3 (1.8-7.7); Neutrophils % (Auto) 69 % (37-80); Nucleated Red Blood Cell % 0 /100 WBC (0); Platelet Count 257 Thou/mm3 (140-440); RDW Standard Deviation 43.3 fL (36.4-46.3); Red Blood Count 4.43 Miln/mm3 (4.00-5.20); White Blood Count 9.7 Thou/mm3 (3.6-11.0)
[2024-12-23 22:14] LABS: Syphilis Nonreactive (Nonreactive)
[2024-12-23 22:14] LABS: Amphetamine/Metham Scrn,Ur OB Negative (Negative); Benzoylecgonine Screen, Ur OB Negative (Negative); Opiate Screen,Urine OB Negative (Negative); THC Screen,Urine OB Positive (Negative)
[2024-12-23 22:15] LABS: THC U Confirm* See Sep Rpt
[2024-12-23 23:10] LABS: Collection Type, Urine Clean Catch
--- NOTE | 2024-12-23 23:10 | ESHP_ITS ---
Documentation for date of: 12/23/24 OB Labor/Induct. HPI History of Present Illness Chief complaint: induction : 7 Para: 6 Term pregnancies: 6 pregnancies: 0 Living children: 6 History of Abortions: Spontaneous and Elective: 0 History of Vaginal deliveries: 6 History of sections: No History of : No Date of last menstrual period: 03/15/24 RAYRAY: 12/20/24 Gestational Age (weeks): 40 Gestational Age (days): 3 Gestational age based on last menstrual period: 40 Indication for induction: maternal distance and history of rapid labor History of present illness: 34-year-old 7 para 6 admit to labor and delivery for [place]. [place] of [place] labors. Blood pressures have been elevated 140s over 90s x 2. Drug screen positive for marijuana. Denies surgeries. Denies existing past medical history. Last period March 15, 2024. This gives due date December 20, 2024. First ultrasound was in July. Patient was 23 weeks this confirmed dates. And patient had growth scan with maternal- medicine that showed normal anatomy and good growth. A1c was 5.9. 1 hour GTT was normal. GBS negative. Patient is B+, antibody screen negative, RPR nonreactive, rubella immune, hepatitis B negative, hep C negative, HIV negative, her GC and Chlamydia were negative. History of Present Dating criteria: LMP confirmed by 1st trimester US Ultrasounds: normal 1st trimester US and normal mid trimester US Obstetrical complications: gestational hypertension Medical complications: none Labs Labs: Negative: RPR, Hepatitis B, Rubella Titre, HIV, Chlamydia, Gonorrhea and Group Beta Strep and Unknown: Herpes Type 1, Herpes Type 2 and Covid-19 Review of Systems Review of Systems Systems Reviewed: All systems reviewed, normal except as documented Past Medical History Surgical History SURGICAL: Negative Section Meds Home Medications and Allergies Home Medications ?Medication ?Instructions ?Recorded ?Confirmed ?Type vits no.126-ferrous fum tab PO 12/08/2412/08 History 28 mg iron-folic acid 800 mcg tablet (Classic ) Allergies Allergy/AdvReac Type Severity Reaction Status Date / Time No Known Allergies Allergy Verified 12/23/24 19:23 OB Exam Physical Exam Vital signs: Temp Pulse Resp BP 98.2 F 79 18 139/86 H 12/23/24 20:00 12/23/24 22:50 12/23/24 20:00 12/23/24 22:50 Narrative: Alert and oriented. Normal heart rate and rhythm. Lungs clear no wheezes. Gravid abdomen. Gynecoid pelvis. Estimated weight 3900 g. Patient because baby was 10 pounds uncomplicated . Blood pressures have been 140s over 90s. Contraction 130s over 80. Patient will be started on labetalol 200 twice daily. Vaginal exam 50%, 2, -3. Soft. Posterior heart rate category 1 with accelerations and moderate variability and contractions 4 to 5 minutes. Routine Cardiovascular Exam Cardiovascular: Present RRR Routine Abdominal Exam Abdominal: Present soft Detailed Labor and Delivery Exam Dilation (cm): 2 Effacement (%): 50 Cervix position: posterior station: -3 Consistency: soft Presentation: Vertex Cervical ripeness score: 5 Membranes: intact Baseline heart rate: 135 monitor accelerations: 15x15 monitor decelerations: None terminal computer operator variability: Moderate (11-25) Contraction frequency (min): 4-5 Contraction duration (sec): 30 Tachysystole: No Contraction intensity: Mild OB Results Labs 12/23/24 19:30 Labs: Short CBC 12/23/24 Range/Units 19:30 WBC 9.7 (3.6-11.0) Thou/mm3 Hgb 12.1 (12.0-16.0) g/dL Hct 34.8 L (36.0-46.0) % Plt Count 257 (140-440) Thou/mm3 OB Assessment & Plan Assessment and Plan (1) Grand multiparity with current : Status: Acute (2) Normal labor and delivery: Status: Acute Additional Plan Induction method: per pitocin protocol Plan: induction, anticipate NVD and consult MD ruiz (PI lab, start labetolol 100 bid) (1) Grand multiparity with current Qualifiers: Trimester: third trimester Qualified Code(s): O09.43 - Supervision of with grand multiparity, third trimester
[2024-12-23] MEDS: LABETALOL 100 MG TABLET 200 MG PO (23:20)
[2024-12-23 23:29] LABS: Bacteria,Urine 4+; Bilirubin,Urine Negative (Negative); Blood,Urine Negative (Negative); Calcium Oxalate Crystals,Urine 3+; Clarity,Urine Turbid (Clear/Hazy); Color,Urine Yellow (Lt Yel-Yel); Creatinine,Random Urine 156 mg/dL (30-125); Glucose, Urine Negative (Negative); Ketones,Urine Negative (Negative); Leukocyte Esterase,Urine Positive (Negative); Nitrite,Urine Negative (Negative); Protein Total, Random Urine 30 mg/dL (1-14); Protein,Urine Trace (Neg - Trace); RBC,Urine 41 /hpf (0-3); Specific Gravity,Urine 1.028 (1.001-1.035); Squamous Epithelial Cell,Urine 14 /hpf (0-5); Urobilinogen,Urine Negative mg/dL (0.0-1.0); WBC,Urine 17 /hpf (0-5)
[2024-12-23 23:43] LABS: Fibrinogen 589 mg/dL (175-375); INR 0.9 (0.9-1.3); Partial Thromboplastin Time 26.2 Seconds (22.0-36.0); Prothrombin Time 9.8 Seconds (9.0-12.2)
[2024-12-24] VITALS (151 sets, daily range): BP systolic 110–215; BP diastolic 63–140; PULSE 58–130; RESP 12–20; TEMP 36.1–36.8; O2SAT 89–100
[2024-12-24] MEDS: OXYTOCIN in NS 30 units 30 UNIT/500 ML BAG IV (00:10)
[2024-12-24 01:28] LABS: Albumin, Serum 3.9 gm/dL (3.5-5.0); Albumin/Globulin Ratio 1.6 (1.2-2.2); Alkaline Phosphatase 171 U/L (46-116); Anion Gap 14 (7-16); Aspartate Amino Transferase 10 U/L (0-34); BUN/Creatinine Ratio 22 Ratio (12-20); Bilirubin,Total 0.2 mg/dL (0.3-1.2); Blood Urea Nitrogen 11 mg/dL (9-23); Calcium 8.8 mg/dL (8.3-10.6); Calcium (Corrected) 8.9 mg/dL (8.5-10.1); Carbon Dioxide 20.1 mMol/L (20.0-31.0); Chloride 104 mMol/L (98-107); Creatinine (Component) 0.5 mg/dL (0.6-1.3); Estimated Creatinine Clearance 183.1 mL/min (>60); Globulin 2.5 gm/dL (2.3-3.5); Glucose 96 mg/dL (74-106); Osmolality,Calculated 275 (275-295); Potassium 3.4 mMol/L (3.4-5.1); Sodium 138 mMol/L (136-145); Total Protein 6.4 gm/dL (5.7-8.2); Uric Acid 3.1 mg/dL (3.1-7.8); eGFR > 60 See Note
[2024-12-24 01:30] LABS: Alanine Aminotransferase < 7 U/L (10-49)
[2024-12-24] MEDS: fentaNYL CIT INJ 50 mCg/ML AMP 2ML 100 MCG IVP ×3 (01:40→06:09)
[2024-12-24] MEDS: ONDANSETRON INJ 2 MG/ML INJ 2 ML 4 MG IVP (01:40)
[2024-12-24] MEDS: RINGERS LACTATED 1000 ML 1,000 ML 100 ML IV (02:52)
--- NOTE | 2024-12-24 06:52 | PD.LDPN ---
Documentation for date of: 12/24/24 OB Labor Progress Note Pain Control Pain control: tolerating well Pelvic Exam Dilation (cm): 7 Effacement (%): 70 station: -1 Amniotic membrane status: Ruptured (meconium) Contractions Monitor mode: External Contraction frequency: 3 Contraction duration: 30 Contraction phase: Resting Contraction intensity: Moderate Status status: Category l Assessment and Plan Pitocin rate (mU/min): 5 Assessment: active labor Plan OB labor note: continuous present management CNM Management MD Consulted (describe details below): Yes
[2024-12-24] MEDS: TRANEXAMIC ACID 1,000 MG IVPB 1,000 MG/100 ML BAG 200 MG IV ×2 (08:09→09:00)
[2024-12-24] MEDS: OXYTOCIN INJ 10 UNIT/ML VIAL IM (08:09)
[2024-12-24] MEDS: MISOPROSTOL 200 mCg TABLET 800 MCG PR (08:17)
--- NOTE | 2024-12-24 08:53 | OBDSUM_ITS ---
Data (Gerardo) Data Hx Section: No : 7 Term: 6 : 0 Livin Abortions: Spontaneous & Theraputic: 0 Delivery Data (Gerardo) Labor Data Initiation of labor: Induction Induction/Augmentation Agent: Pitocin ROM date: 12/24/24 ROM time: 06:46 Amniotic membrane rupture type: Artificial Amniotic fluid description: Moderate Meconium Delivery Data EDC: 12/20/24 EDC calculated by:: LMP/early US confirmation Date of arrival to unit: 12/23/24 Time of arrival to unit: 19:18 Onset of labor date: 12/24/24 Onset of labor time: 01:10 Complete dilation date: 12/24/24 Complete dilation time: 08:05 delivery date: 12/24/24 [place] delivery time: 08:07 Gestational age (weeks): 40 Gestational age (days): 3 Placenta delivery date: 12/24/24 Placenta delivery time: 08:11 Stage 1 total time: Labor - Stage 1 Duration 6 hours and 55 minutes Delivered by: Олег Fuentes Delivery nurse: Arnav Massey nurse: Hayley Torres Etiquette Teacher at delivery: Yes Support person(s) at delivery: FOB Delivery Method Delivery method: Normal Vaginal Delivery Presentation: Vertex position: OA Anesthesia Type Anesthesia Type: None Delivery Room Medications Delivery room medications: Pitocin 10 u IM, Pitocin 20 u IV, Cytotec 800 [place] and other (TXA x2) Placenta Placenta delivery description: Spontaneous Cord blood sent to lab: Yes cord blood collection: Cord Blood Type Episiotomy Episiotomy description: None (intact) EBL Estimated blood loss (ml): 450 Umbilical Cord cord description: 3 Vessels and Nuchal Cord (x1) [place] Data (Gerardo) Data order: 1 's gender: Male Identification band number: [id number] weight (gms): 4025 kg Weight (pounds): 8873 lbs and 9.7 ozs length: 53 cm 1 minute: 8 5 minutes: 9
[2024-12-24] MEDS: LABETALOL 100 MG TABLET 200 MG PO ×2 (09:10→20:23)
[2024-12-24] MEDS: IBUPROFEN TAB 400 MG TABLET 800 MG PO ×2 (09:11→23:04)
[2024-12-24] MEDS: OXYTOCIN in NS 20 units 20 UNIT/1,000 ML BAG 125 UNIT IV ×2 (09:39→16:00)
--- NOTE | 2024-12-24 09:58 | CHAP ---
I had the Spiritual Care volunteer respond to the Rapid Response in the Labor and Delivery wing at 09:58. All was well.
[2024-12-24] MEDS: METHYLERGONOVINE INJ 0.2 MG/ML VIAL IM (10:03)
--- NOTE | 2024-12-24 10:08 | ESPR_ITS ---
Subjective Subjective Interval history: Called by charge nurse in the at 09 52 for the first time about this patient. Notified that the patient was bleeding heavily. I arrived at the bedside at 0956. Patient hypotensive and tachycardic. Excessive vaginal bleeding noted despite uterotonic's Exam Vital Signs Temp Pulse Resp BP Pulse Ox 97.5 F 115 H 18 112/70 100 12/24/24 03:00 12/24/24 10:08 12/24/24 03:00 12/24/24 10:08 12/24/24 10:03 Routine Abdominal Exam Comments: Uterus atonic above the umbilicus Routine Exam Comments: Excessive vaginal bleeding Objective Labs 12/23/24 19:30 12/23/24 23:00 Labs: Laboratory Results - last 24 hr 12/23/24 12/23/24 12/23/24 19: 19:30 23:00 WBC 9.7 RBC 4.43 Hgb 12.1 Hct 34.8 L MCV 79 L MCH 27.3 MCHC 34.8 RDW Std Deviation 43.3 Plt Count 257 Neut % (Auto) 69 Lymph % (Auto) 24 [place] % (Auto) 5 Eos % (Auto) 1 Baso % (Auto) 0 Neut # (Auto) 6.7 Lymph # (Auto) 2.4 [place] # (Auto) 0.5 Eos # (Auto) 0.1 Baso # (Auto) 0.0 Immature Gran # (Auto) 0.08 H Absolute Nucleated RBC 0.00 Immature Gran % 1 H Nucleated RBC % 0 PT 9.8 INR 0.9 APTT 26.2 Fibrinogen 589 H Sodium 138 Potassium 3.4 Chloride 104 Carbon Dioxide 20.1 Anion Gap 14 BUN 11 Creatinine 0.5 L Estim Creat Clear Calc 183.1 eGFR > 60 BUN/Creatinine Ratio 22 H Glucose 96 Calculated Osmolality 275 Uric Acid 3.1 Calcium 8.8 Corrected Calcium 8.9 Total Bilirubin 0.2 L AST 10 ALT < 7 L Alkaline Phosphatase 171 H Total Protein 6.4 Albumin 3.9 Globulin 2.5 Albumin/Globulin Ratio 1.6 Ur Collection Type Clean Catch Urine Color Yellow Urine Clarity Turbid A Urine pH 6.0 Ur Specific [place] 1.028 Urine Protein Trace Urine Glucose (UA) Negative Urine Ketones Negative Urine Blood Negative Urine Nitrite Negative Urine Bilirubin Negative Urine Urobilinogen (Auto) Negative Ur Leukocyte Esterase Positive Urine RBC 41 H Urine WBC 17 H Ur Squamous Epith Cells 14 H Calcium Oxalate Crystal 3+ A Urine Bacteria 4+ A Ur Random Creatinine 156 H U Random Total Protein 30 H Urine Opiates Screen Negative U Amphetamin/Meth Scrn Negative U Cocaine Metab Screen Negative U Marijuana (THC) Screen Positive A Syphilis Serology Nonreactive Blood Type B Positive Antibody Screen NEGATIVE Crossmatch See Detail Blood Bank Wristband ID Yes Impressions Impression: Postop day #0 status post spontaneous vaginal delivery hemorrhage secondary to uterine atony Emergency exam under anesthesia, uterine curettage, Bakley balloon placement possible abdominal hysterectomy. I discussed with the patient the nature of her condition and the recommended treatment plan. She is aware of the risk complication alternatives and benefits of the proposed procedure and she agrees Assessment & Plan Problem List (1) Grand multiparity with current : Status: Acute (2) Normal labor and delivery: Status: Acute Time Spent With Patient Time: Total time spent is greater than 50% in coordination of care (as documented) at patient's floor/unit and/or counseling patient:
[2024-12-24] MEDS: ACETAMINOPHEN IVPB 1,000 MG/100 ML VIAL 250 MG IV (11:25)
--- NOTE | 2024-12-24 11:25 | ESOP_ITS ---
Operative Note - LITIGATION LEGAL SECRETARY Procedure Date of procedure: 12/24/24 Procedure Performed: Exam under anesthesia Uterine curettage Bakri balloon placement Indication: hemorrhage (1200 cc prior to surgery) Uterine atony despite uterotnics Post day #0 status post spontaneous vaginal delivery Pre-Op diagnosis: hemorrhage (1200 cc prior to surgery) Uterine atony despite uterotnics Post day #0 status post spontaneous vaginal delivery Post-Op diagnosis: hemorrhage (2000 cc total since delivery) Uterine atony despite uterotnics Post day #0 status post spontaneous vaginal delivery Anesthesia type: General Procedure description: After proper informed consent was obtained and the patient made aware of the risk complications alternatives and benefits of the proposed procedure she was taken to the operating room where she underwent induction of general anesthesia.. She was placed in dorsal lithotomy position and prepped and draped in usual sterile fashion.. A timeout was performed.. She underwent exam under anesthesia which revealed a uterus fundus above the umbilicus mobile anteverted and boggy. A uterine curettage was performed with the banjo curette and no products of conception were obtained. The Bakley balloon was placed and inflated with 500 cc of saline. The patient was observed for several minutes and no bleeding was noted around the balloon and she remained hemodynamically stable. A Curlex vaginal packing was placed. She was reversed from general anesthesia in the supine position and transferred to the recovery in stable condition. She tolerated the procedure well and counts were correct. Estimated blood loss (ml): 800 Findings: 22 week size mobile anteverted and boggy uterus. No vaginal or cervical lacerations.. No retained products of conception. Complications: none Surgical staff Operation Date: 12/24/24 10:15 <No data on this case meets the specified criteria> Diagnosis Problem List Completed Was Problem List Reviewed/Reconciled?: Yes
[2024-12-24] MEDS: fentaNYL CIT INJ 50 mCg/ML AMP 2ML IVP (12:34)
[2024-12-24] MEDS: ceFAZolin/D5W 2 GM IV 2 GM/100 ML BAG IV ×2 (13:08→20:14)
[2024-12-24] MEDS: HYDROcodone/APAP 5/325 TABLET 2 TAB PO ×2 (13:26→20:13)
[2024-12-24] MEDS: DOCUSATE SOD 100 MG CAPSULE PO (20:14)
[2024-12-24 22:28] LABS: Basophils % (Auto) 0 % (0-2.5); Eosinophils % (Auto) 0 % (0-10); Hematocrit 30.4 % (36.0-46.0); Hemoglobin 10.7 g/dL (12.0-16.0); Immature Granulocytes % (Auto) 1 % (0-0); Immature Granulocytes Auto 0.14 Thou/mm3 (0.00-0.00); Lymphocytes # (Auto) 1.4 Thou/mm3 (1.0-4.8); Lymphocytes % (Auto) 9 % (10-50); Mean Corpuscular HGB Conc 35.2 g/dl (31.0-37.0); Mean Corpuscular Volume 77 fL (80-100); Monocytes # (Auto) 0.5 Thou/mm3 (0.0-0.8); Monocytes % (Auto) 3 % (0-12); Neutrophils # (Auto) 14.5 Thou/mm3 (1.8-7.7); Neutrophils % (Auto) 87 % (37-80); Nucleated Red Blood Cell % 0 /100 WBC (0); Platelet Count 174 Thou/mm3 (140-440); RDW Standard Deviation 41.5 fL (36.4-46.3); Red Blood Count 3.96 Miln/mm3 (4.00-5.20); White Blood Count 16.6 Thou/mm3 (3.6-11.0)
--- NOTE | 2024-12-24 23:57 | PC.NURSE ---
201112/24/24 Patients bakri balloon drain out put at this time is 20ml
[2024-12-25] MEDS: OXYTOCIN in NS 20 units 20 UNIT/1,000 ML BAG 125 UNIT IV (01:15)
--- NOTE | 2024-12-25 01:23 | PC.NURSE ---
204912/24/24 called lab to get an update on if the FFP was ready to be picked up, they let me know there was no B+ FFP so they will issue me AB+ FFP and that is ready for poultry picker. After I picked up the FFP from the lab at 2109 and came back to infuse it the FFP would not continue scanning. I notified my charge nurse and took the FFP back to the lab to be put in the cooler till the situation was resolved. I waited in lab and they reissued the bag back to me and said they fixed the problem. When I came back to the pt room to infuse the FFP bag there was a problem with scanning the bag again. I notified the charge nurse on my unit and we filled out a paper blood product form instead of continuing on the TAR. The pt blood administration record in in the patients paper chart. The pt FFP infusion started at 2207 and ended at 2339. No signs or symptoms of infusion reaction was noted.Patient tolerated well.
--- NOTE | 2024-12-25 02:27 | PC.NURSE ---
2345 12/25/24 20ml was emptied from the pt Bakri balloon drain.
[2024-12-25] MEDS: HYDROcodone/APAP 5/325 TABLET 2 TAB PO (04:38)
[2024-12-25 04:41] VITALS: BP 143/91; PULSE 77; RESP 16; TEMP 36.7; O2SAT 100
[2024-12-25] MEDS: ceFAZolin/D5W 2 GM IV 2 GM/100 ML BAG IV (05:40)
--- NOTE | 2024-12-25 06:14 | PC.NURSE ---
0441 12/25/24 Patient output of blood in the Bakri balloon drain is 50ml at this time.
--- NOTE | 2024-12-25 07:15 | PC.NURSE ---
0626 called lab to see why the pt draw that was done at 0340 showed uncollected on my end, pt stated that they did come to draw her blood some time around 0330 in the morning.
[2024-12-25 07:57] LABS: Basophils % (Auto) 0 % (0-2.5); Eosinophils % (Auto) 0 % (0-10); Hematocrit 23.8 % (36.0-46.0); Immature Granulocytes % (Auto) 1 % (0-0); Immature Granulocytes Auto 0.08 Thou/mm3 (0.00-0.00); Lymphocytes % (Auto) 17 % (10-50); Mean Corpuscular HGB Conc 36.1 g/dl (31.0-37.0); Mean Corpuscular Hemoglobin 27.5 pg (25.0-35.0); Mean Corpuscular Volume 76 fL (80-100); Monocytes # (Auto) 0.8 Thou/mm3 (0.0-0.8); Monocytes % (Auto) 7 % (0-12); Neutrophils # (Auto) 8.7 Thou/mm3 (1.8-7.7); Neutrophils % (Auto) 75 % (37-80); Nucleated Red Blood Cell % 0 /100 WBC (0); Platelet Count 210 Thou/mm3 (140-440); RDW Standard Deviation 42.2 fL (36.4-46.3); Red Blood Count 3.13 Miln/mm3 (4.00-5.20); White Blood Count 11.7 Thou/mm3 (3.6-11.0)
[2024-12-25 08:02] LABS: Hemoglobin 8.6 g/dL (12.0-16.0)
--- NOTE | 2024-12-25 08:36 | ESPR_ITS ---
Subjective Subjective Interval history: No complaints of pain. No dizziness. Feeling better today. Patient had hemorrhage 2 hours after delivery. She was taken to the ER for manual removal of clots and D&C. Jaylen balloon was placed. Patient received 2 units of blood. Exam Vital Signs Temp Pulse Resp BP Pulse Ox O2 Del Method 98.1 F 77 16 143/91 H 100 Room Air 12/25/24 04:41 12/25/24 04:41 12/25/24 04:41 12/25/24 04:41 12/25/24 04:41 12/25/24 04:41 Narrative Exam Vital signs are stable. Fundus is firm below the umbilicus. Perineum intact. 2+ DTRs. 10 cc are in the back or the jaylen balloon. Ledbetter catheter draining clear yellow urine orders for 100 cc in the bag. Objective Labs 12/25/24 07:05 12/23/24 23:00 Labs: Laboratory Results - last 24 hr 12/23/24 12/24/24 12/25/24 19:30 21:44 07:05 WBC 16.6 H D 11.7 H RBC 3.96 L 3.13 L Hgb 10.7 L 8.6 L D Hct 30.4 L 23.8 L MCV 77 L 76 L MCH 27.0 27.5 MCHC 35.2 36.1 RDW Std Deviation 41.5 42.2 Plt Count 174 D 210 D Neut % (Auto) 87 H 75 Lymph % (Auto) 9 L 17 [place] % (Auto) 3 7 Eos % (Auto) 0 0 Baso % (Auto) 0 0 Neut # (Auto) 14.5 H 8.7 H Lymph # (Auto) 1.4 2.0 [place] # (Auto) 0.5 0.8 Eos # (Auto) 0.0 0.0 Baso # (Auto) 0.0 0.0 Immature Gran # (Auto) 0.14 H 0.08 H Absolute Nucleated RBC 0.00 0.00 Immature Gran % 1 H 1 H Nucleated RBC % 0 0 Blood Type B Positive Antibody Screen NEGATIVE Crossmatch See Detail Blood Bank Wristband ID Yes Blood Bank Comment FFP Ready Assessment & Plan Problem List (1) Grand multiparity with current : Status: Acute (2) Normal labor and delivery: Status: Acute Assessment Comment Assessment comment: 24 hr PP hemorrage Plan Comment Plan Comment: Continue to monitor patient's vital signs. Continue to monitor Jaylen a balloon for bloody drainage. Ledbetter catheter drainage until removed. Tylenol or ibuprofen for pain. Time Spent With Patient Time: Total time spent is greater than 50% in coordination of care (as documented) at patient's floor/unit and/or counseling patient:
[2024-12-25 08:50] VITALS: BP 114/75; PULSE 76; RESP 16; TEMP 36.8; O2SAT 98
[2024-12-25 09:37] VITALS: BP 114/75; PULSE 76
[2024-12-25] MEDS: LABETALOL 100 MG TABLET 200 MG PO (09:37)
[2024-12-25] MEDS: DOCUSATE SOD 100 MG CAPSULE PO (09:37)
[2024-12-25] MEDS: IBUPROFEN TAB 400 MG TABLET 800 MG PO (09:39)
--- NOTE | 2024-12-25 12:02 | PC.NURSE ---
AT 1110 dr Granados at bedside, DC roper, vaginal packing and bakri balloon, 10ml of blood noted in JEREMIAH drain, patient tolerated well. VORB to stop oxytocin infusion.
--- NOTE | 2024-12-25 14:04 | ESDS_ITS ---
DS: Providers Provider Date of admission: 12/23/24 19:18 Primary care physician: Physician No Primary/Family Admitting Provider: Mono Granados MD Attending Provider on Admission: Nuno Stokes MD Consults: 12/24/24 09:30 Referral Routine Comment: 12/24/24 12:50 Referral Routine Comment: Attending Provider on DC: Mono Granados MD Discharging Provider: Mono Granados MD DS: Diagnosis Discharge Diagnosis (1) Blood transfusion during current hospitalisation: Status: Acute (2) atony of uterus with hemorrhage: Status: Acute (3) hemorrhage: Status: Acute (4) Normal labor and delivery: Status: Acute (5) Encounter for supervision of normal in multigravida in third trimester: Status: Acute Problem List Completed Was Problem List Reviewed/Reconciled?: Yes Summary/Hosp Course Brief History: 34-year-old 7 para 6 admit to labor and delivery for induction of labor. [facility] has [facility] of fast lab[facility]. Blood pressures have been elevated 140s over 90s x 2. Drug screen positive for marijuana. Denies surgeries. Denies existing past medical history. Last period March 15, 2024. This gives due date December 20, 2024. First ultrasound was in July. Patient was 23 weeks this confirmed dates. And patient had growth scan with maternal- medicine that showed normal anatomy and good vanessa wth. A1c was 5.9. 1 hour GTT was normal. GBS negative. Patient is B+, antibody screen negative, RPR nonreactive, rubella immune, hepatitis B negative, hep C negative, HIV negative, her GC and Chlamydia were negative. Peripartum Data Delivery Method: Normal Vaginal Delivery Episiotomy Description: None (intact) Procedures: Procedures Operation Date: 12/24/24 10:15 Actual Procedure Side Surgeon p Bleeding control-OB Womens services Nuno Stokes MD Time Spent with Patient Time attestation: Total time spent providing and/or coordinating discharge services: Exam Vital Signs Temp Pulse Resp BP Pulse Ox O2 Del Method 98.1 F 76 16 114/75 100 Room Air 12/25/24 04:41 12/25/24 09:37 12/25/24 04:41 12/25/24 09:37 12/25/24 04:41 12/25/24 04:41 Discharge Plan Plan Patient Disposition: HOME (Self Care) Patient condition on transfer: Stable Prescriptions/Referrals Prescriptions/Med Rec: New docusate sodium [Stool Softener] 100 mg capsule 100 mg PO QDAY 30 Days Qty: 30 0RF ibuprofen 600 mg tablet 600 mg PO Q6H MDD 4 PRN (Reason: fever or pain) 10 Days Qty: 40 0RF Continued Classic 28 mg iron- 800 mcg tablet PO Referrals: No Primary/Family,Physician [Primary Care Provider] - Patient/Caregiver Discharge Instructions Education Materials: After a Vaginal , After Delivery Concerns, Breast Care After , Incision Care After Vaginal , Nutrition While , Understanding Depression, : Caring for Yourself, Feel Healthy After, Preventing Surgical Site Infections Print Language: Kazakh Stand Alone Forms: Sunita Award Info., Patient Portal Info Letter, DC from Surgery Discharge Order Discharge Orders: Discharge (Routine); Ordered 12/25/24 Ordered By: Mono Granados Planned Discharge Date 12/25/24
--- NOTE | 2024-12-25 14:06 | PC.CC ---
Tia De Jesus is a 28-year-old female admitted for labor and delivery care. Hog Sawyer made contact with Pt at bedside to complete OB assessment and discuss discharge disposition. Role and reason for the contact was explained to Pt. Demographic information was verified. Pt identified father of baby Bebo De Jesus [phone] as surrogate decision maker. Pt is independent with all ADLs, no source of DME. PCP is up at [facility]. At time of discharge patient will return home, family will provide transportation. Mother plans on combo feeing, has car seat, and all supplies for baby. Mother denies DV, but reports history of CPS involvement. Mother reports support system provided by extended family. Discharge Plan: Home Next of Kin: Bebo De Jesus [phone] PCP: [facility]
[2024-12-25] MEDS: ONDANSETRON INJ 2 MG/ML INJ 2 ML 4 MG IVP (15:20)
[2024-12-25 15:24] VITALS: BP 134/86; PULSE 85; RESP 16; TEMP 37
--- NOTE | 2024-12-25 16:19 | PC.CC ---
Addendum entered by Nadiya Otto 12/25/24 16:23: Institutional Asset Manager received further confirmation from CWS Brenda to move forward with discharge of Pt and . CWS will follow up with Pt at a later time. Original Note: Institutional Asset Manager completed CWS report with Brenda Rios whom stated report will not alert an urgent repose. CWS will follow up with Pt at a later time.
== END 2024-12-25 17:05 | disposition home or self-care (01) | DRG 542 ==
LOC: S4SX 12-24 10:12 → S4NX 12-24 10:19
PROVIDERS: Advanced Practice Midwife; Admitting Provider Obstetrics & Gynecology; Visit Provider Specialist
DX: O13.4 Gestational [pregnancy-induced] hypertension without significant proteinuria, complicating childbirth (principal); O48.0 Post-term pregnancy; Z37.0 Single live birth; Z3A.40 40 weeks gestation of pregnancy; O72.1 Other immediate postpartum hemorrhage; O69.81X0 Labor and delivery complicated by cord around neck, without compression, not applicable or unspecified; O77.0 Labor and delivery complicated by meconium in amniotic fluid
CPT/HCPCS: 36415; 59409; 76805; 80053; 80307; 81001; 82570; 84156; 84550; 85025; 85384; 85610; 85730; 86780; 86850; 86900; 86901; 86923; 86927; 94762; J0131; J0689; J1100; J1171; J2210; J2405; J2590; J2704; J3010; J3490; J7120; P9016; P9060; S0191; A9270